=== PATIENT | male | born 1985 | race Caucasian/White ===

== ENCOUNTER 2020-09-28 11:14 | Emergency (ER) | payer OTHER ==
[~2020-09-28] VITALS: Ht 180.3 cm; Wt 104.3 kg
[~2020-09-28 11:14] MED LIST: AMOXICILLI400 MG/5 M PO; ANTIVERT25 MG PO; BENTYL 10 MG CA10 M1 PO; NEXIUM40 MG PO
[2020-09-28] MEDS ORDERED: OMEPRAZOLE 20 M20 M1 PO (11:32)
[2020-09-28] MEDS ORDERED: TYLENOL325 MG PO (11:33)
[2020-09-28 11:55] LABS: ABSOLUTE LYMPHOCYTES 1.2 thou/uL (0.8-5.3); ABSOLUTE MONOCYTES 0.3 thou/uL (0.0-1.2); ABSOLUTE NEUTROPHILS 1.5 thou/uL (1.6-8.1); BASOPHILS 0.3 %; EOSINOPHILS 0.2 %; HEMATOCRIT 44.8 % (42.0-52.0); HEMOGLOBIN 15.2 gm/dL (14.0-18.0); LYMPHOCYTES 39.6 %; MCH 28.5 pg (26.0-34.0); MCHC 33.8 g/dL (28.0-37.0); MCV 84.4 fL (80.0-100.0); MONOCYTES 9.9 %; MPV 7.6 fl. (7.2-11.1); NUCLEATED RBCS 0 /100WBC; PLATELET COUNT* 118 thou/uL (150-400); RBC 5.31 mil/uL (4.50-6.00); RDW-CV 13.9 % (10.5-14.5); WBC 3.1 thou/uL (4.0-11.0)
[2020-09-28 12:05] LABS: CALCIUM 8.5 mg/dL (8.5-10.1); CREATININE 0.9 mg/dL (0.6-1.3); POTASSIUM 3.5 mmol/L (3.5-5.1)
[2020-09-28 12:11] LABS: BE 0.3 mmol/L (-2 to +3); PO2 68.1 mmHg (75.0-100.0); pH 7.457 (7.340-7.450)
[2020-09-28 12:15] LABS: ALBUMIN 3.9 g/dL (3.4-5.0); MAGNESIUM 2.1 mg/dL (1.8-2.4); TOTAL BILIRUBIN 0.4 mg/dL (<0.1-1.0); TOTAL PROTEIN 7.6 g/dL (6.4-8.2)
[2020-09-28 13:36] LABS: URINE BILIRUBIN NEGATIVE (Negative); URINE BLOOD NEGATIVE (Negative); URINE CLARITY CLEAR; URINE COLOR YELLOW; URINE GLUCOSE-RANDOM NEGATIVE (Negative); URINE KETONES TRACE (Negative); URINE LEUKOCYTES-REFLEX NEGATIVE (Negative); URINE NITRITE-REFLEX NEGATIVE (Negative); URINE PROTEIN 1+ (Negative); URINE UROBILINOGEN 0.2 E.U./dl (0.2-1.0)
[2020-09-28] MEDS ORDERED: ZPAK PO (13:53)
[2020-09-28] MEDS ORDERED: PREDNISONE 10 M10 M1 PO (13:53)
[2020-09-28 13:54] VITALS: BP 104/71
== END 2020-09-28 13:54 | disposition home or self-care (01) ==
LOC: M.ERS 11:14
PROVIDERS: Personal Emergency Response Attendant
DX: U07.1 COVID-19 (principal); R53.1 Weakness; K21.9 Gastro-esophageal reflux disease without esophagitis